=== PATIENT | female | born 1995 | race American Indian/Alaskan Native ===

== ENCOUNTER 2017-06-26 15:39 | Emergency (ER) | payer OTHER ==
[2017-06-26 15:40] VITALS: BMI 22.4
[2017-06-26] MEDS ORDERED: Lidocaine 1% Inj (20ml) INFIL ONE (16:51)
[2017-06-26 16:53] VITALS: BP 111/73; PULSE 82; RESP 16; TEMP 97.6; O2SAT 100
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
[2017-06-26] MEDS ORDERED: Lidocaine 2% w Epi 1:100,000 Inj IJ ONE (17:15)
[2017-06-26] MEDS ORDERED: Bacitracin 500 Units/gm Oint Foilpak UD ONE (17:45)
--- NOTE | 2017-06-27 07:31 | RAD ---
PROCEDURE: Right Hand Radiographs. HISTORY: laceration palm broken glass, r.o foreign body COMPARISON: None. FINDINGS: BONES: No acute fracture or destructive bony lesion identified. JOINTS: Normal. No osteoarthritic changes. SOFT TISSUES: No definite retained radiodense foreign body is appreciated throughout the soft tissues of the right hand with including evaluation of the palmar soft tissues. No emphysematous soft tissue changes are identified. OTHER FINDINGS: None. IMPRESSION: Unremarkable right hand radiographs. No retained radiodense foreign body appreciable throughout the soft tissues. No fracture or dislocation identified.
== END 2017-06-26 19:04 | disposition home or self-care (01) ==
LOC: C.ER 15:39
DX: S61.411A Laceration without foreign body of right hand, initial encounter (principal); W25.XXXA Contact with sharp glass, initial encounter; Y92.9 Unspecified place or not applicable